=== PATIENT | female | born 1925 | race Caucasian/White ===

== ENCOUNTER 2017-08-09 09:38 | Inpatient (IN) | payer MEDICARE, OTHER ==
--- NOTE | 2017-08-09 09:58 | CT ---
HEAD CT NONCONTRAST: INDICATION: Acute onset altered mental status, right hemiparesis. FINDINGS: Multifocal deep white matter ischemic change present bilaterally. There is parenchymal atrophy with compensatory dilatation of the ventricular system. There are scattered extraaxial calcifications. N o acute intracranial hemorrhage or mass effect. IMPRESSION: 1. No acute intracranial hemorrhage or mass effect. 2. Findings consistent with multifocal white matter ischemic disease and parenchymal atrophy. Notification placed via telephone, 0945 hours, 08/09/17. POS: RHONDA
--- NOTE | 2017-08-09 10:18 | CT ---
CTA HEAD WITH 3D VOLUME RENDERING CTA NECK WITH 3D VOLUME RENDERING: Date: 08/09/17 CLINICAL HISTORY: Altered mental status, new onset, right side hemiparesis. FINDINGS: There is scattered atherosclerotic vascular disease involving the major arterial system of the head a nd neck without evidence of a focal thrombotic occlusion within the [place]. There Is promin ent scattered atherosclerotic vascular calcification of each carotid artery notably about the level o f the carotid bifurcation. There is medial deviation of each carotid artery. The imaged aortic arch r eveals scattered vascular disease, which also involves origins of the great vessels without high grad e stenosis. There is tortuosity of the course of the bilateral vertebral arteries with mild scattered calcification. IMPRESSION: Scattered atherosclerotic vascular disease without evidence of focal thrombotic occlusion. Telephone call findings placed to ER physician, Dakotah Joseph, at 1001 hours on 08/09/17. CODE CR. POS: RHONDA
[2017-08-09 10:42] LABS: INR-International Normal Ratio 1.1; PTT 27.2 SEC (22.9-36.1); Prothrombin Time 14.5 SEC (12.0-14.7)
[2017-08-09 10:54] LABS: Bilirubin Negative (Negative); Blood, Urine Negative (Negative); Glucose, Urine (Dipstick) Negative (Negative); Leukocyte Negative (Negative); Nitrite Negative (Negative); Protein, Urine (Dipstick) Negative (Neg-Trace); Urobilinogen 0.2 mg/dL (0.2-1.0)
[2017-08-09 10:55] LABS: ALT (SGPT) 21 U/L (8-55); AST (SGOT) 39 U/L (5-34); Albumin 3.6 g/dL (3.4-4.8); Alkaline Phosphatase 211 U/L (40-150); Anion Gap 15 mmol/L (10-20); BUN (Urea Nitrogen) 28 mg/dL (9.8-20.1); Bilirubin, Total 2.1 mg/dL (0.2-1.2); Calc. Creatinine Clearance 0 mL/min (70-130); Carbon Dioxide 27 mmol/L (23-31); Chloride 96 mmol/L (98-107); Estimated GFR-MDRD 50; Globulin 3.4 g/dL (2.4-3.5); Glucose 107 mg/dL (83-110); Sodium 134 mmol/L (136-145)
[2017-08-09 10:59] LABS: CKMB 2.3 ng/mL (0-6.6); Troponin I 0.028 ng/mL (< 0.028)
[2017-08-09 11:02] LABS: Clarity CLEAR (Clear)
[2017-08-09 11:04] LABS: Acanthocytes SLIGHT = 1-5 cells (100X) (None Seen); Anisocytosis MODERATE=16-30 cells (100X) (0-5/hpf); Band 1 % (5-11); Bite Cells SLIGHT = 2-5 cells (100X) (0-1/hpf); Hemoglobin 9.4 g/dL (12.0-16.0); Hypochromia SLIGHT = 6-15 cells (100X) (0-5/hpf); Lymphocytes 14 % (21-51); MDiff Complete? YES; Mean Corpuscular Hemoglobin 31.9 pg (27.0-31.0); Mean Corpuscular Volume 96.6 fl (81.0-99.0); Mean Platelet Volume 10.5 fL (7.4-10.4); Monocytes 21 % (0-10); Neutrophil 62 % (42-75); Nucleated RBC 7 % (0); PLT Morphology Comment Appears Adequate; Platelet Count 256 thou/uL (130-400); Polychromasia MODERATE = 3-4 cells (100X) (0-2/hpf); RBC Distribution Width 19.8 % (11.5-14.5); Reactive Lymphocytes 2 % (0-10); Red Blood Cell (RBC) Count 2.95 mill/uL (4.20-5.40); Schistocytes SLIGHT = 2-5 cells (100X) (0-1/hpf); White Blood Cell (WBC) Count 3.8 thou/uL (4.8-10.8)
[2017-08-09] MEDS ORDERED: Aspirin 300 MG Suppository ONE (12:39)
--- NOTE | 2017-08-09 14:09 | HP ---
PRIMARY CARE PROVIDER: Dr. Sukhi Whitehead in [place]. CHIEF COMPLAINT/REASON FOR ADMISSION: The patient referred to [facility] by [facility]. HISTORY OF PRESENT ILLNESS: The patient was alert, appropriate last night, spoke with the family. T his morning she was noted to not make sense talking, to be poorly responsive. She was seen, found to have non-appropriate verbalization, did not follow directions. She was noted to have some signs and symptoms of a stroke with a droop in her right face and poor use of her right side. CT scan of the brain was unrevealing. She is being admitted to the hospital with a diagnosis of encephalopathy seco ndary to acute embolic stroke probably from atrial fibrillation. She has had two mastectomies for cancer in 1978 and 1979. She has had an ovarian surgery in the . She has had in the last year a diagnosis of CHF. She had some GI bleeding which was determined to be from gastroesophageal reflux disease. CURRENT MEDICATIONS: Not available. The family is going to get them for me. ALLERGIES: She has no medical allergies. PAST SURGICAL HISTORY: In addition to that mentioned in the present illness, she had apparently 2 co mpression fractures 3 months ago which were treated with "glue". FAMILY HISTORY: Negative for strokes, coronary artery disease, diabetes. SOCIAL HISTORY: She is . Non-tobacco user. DNR status, has living will. Family confirmed. REVIEW OF SYSTEMS: Unobtainable due to the patient's current mental status. PHYSICAL EXAMINATION: VITAL SIGNS: Blood pressure was 142/83, pulse was 85 and irregular, respirations were 14-15, O2 sat was 98. HEENT: Reveal pupils equal and reactive. Eyes were conjugate. Extraocular movements could not be t ested because she did not follow directions. Sclerae white. Tympanic membranes clear. Nose clear. Oral mucous membranes are wet. NECK: No jugular venous distention, adenopathy or thyromegaly. LUNGS: Chest clear to auscultation and percussion. CARDIAC: Irregular rate and rhythm. First and second heart sounds were variable, 3/6 systolic murmu r. ABDOMEN: Soft, bowel sounds normal. No hepatosplenomegaly, no mass, no rebound. EXTREMITIES: Reveal no cyanosis, clubbing or edema. PULSES: Carotid, radial, femoral, and dorsalis pedis pulses were palpable and symmetric. SKIN: Warm and dry without bruises or rash. HEME/LYMPH: No tender or swollen lymph nodes in axilla, inguinal or cervical area were palpated. NEUROLOGIC: Right facial droop, decreased motion on right compared to left, upgoing toe on the right compared to the left. X-RAY FINDINGS: CT scan, no acute bleed, reviewed by me. CT angiography revealed no lesions [place] internal carotid arteries. EKG; atrial fibrillation with controlled ventricular response, nonspecific ST-T abnormality, reviewed by me. LABORATORY: Hemoglobin 9.4, white count 3.8, platelet count 256,000. INR 1.1. Comp metabolic profi le: Sodium 134, chloride 96, BUN 28, bilirubin 2.1, AST 39, alkaline phosphatase 211. Other numbers are normal. ADMITTING DIAGNOSES: 1. Encephalopathy. 2. Embolic cerebrovascular accident. 3. Atrial fibrillation. 4. Aortic stenosis versus sclerosis. 5. History of congestive heart failure. 6. Gastroesophageal reflux disease. PLAN: 1. N.p.o. 2. Urgent MRI of the brain without contrast. 3. Lovenox therapeutic. 4. Stroke protocol. 5. Echocardiogram. 6. IV fluids. 7. Reevaluate when results of studies are available for continuing decisions on care, consultations, etc.
[2017-08-09] MEDS ORDERED: [UNRECOGNIZED DRUG - OTHER] IV SCH (14:22)
[2017-08-09] MEDS ORDERED: Acetaminophen 650 MG Suppository PR PRN (14:22)
[2017-08-09] MEDS ORDERED: D5 IV SCH (14:22)
[2017-08-09] MEDS ORDERED: KCL IV SCH (14:22)
[2017-08-09] MEDS ORDERED: Ondansetron HCl/PF 4 MG/2 ML Vial IVP PRN (14:22)
[2017-08-09] MEDS: POTASSIUM CHLORIDE IV SCH (15:48)
[2017-08-09] MEDS: WATER IV SCH (15:48)
[2017-08-09] MEDS: DEXTROSE 5% IV SCH (15:48)
[2017-08-09] MEDS: SODIUM CHLORIDE IV SCH (15:48)
--- NOTE | 2017-08-09 15:54 | MRI ---
MRI BRAIN NONCONTRAST: HISTORY: CVA. Right facial droop. COMPARISON: CT head 08/09/17. FINDINGS: Centered at the peripheral norman matter of the left frontotemporal lobe, an area of restricted diffusi on is 3.9 x 3.1 cm diameters on the axial images and shows a corresponding defect on the ADC mapping images. Subtle signal abnormalities in the same distribution are present on the FLAIR and T2 weighte d images. There is no mass effect or shift of midline structures. Diffuse cortical atrophy and rating officer esvin ischemic small-vessel disease are again demonstrated. No mass effect or shift of midline structu res. IMPRESSION: Acute area of peripheral infarct involving the norman matter of the left frontotemporal lobe in the dis jackelyn distribution of an anterior left middle cerebral artery branch. No evidence of complication. POS: RHONDA
[2017-08-09] MEDS ORDERED: ISOVUE-370 76%-LOCM 1 ML ONE (16:16)
--- NOTE | 2017-08-09 16:22 | PDOC.EVN ---
Event Note - Event Note Event Note: MRI brain- L MCA infarct, acute
[2017-08-09] MEDS: Enoxaparin Sodium 60 MG/0.6 ML SYRINGE SC SCH (21:20)
--- NOTE | 2017-08-10 01:03 | CON ---
DATE OF CONSULTATION: 08/09/2017 REFERRING PROVIDER: Dr. Alix Clark. REASON FOR CONSULTATION: Aphasia. HISTORY OF PRESENT ILLNESS: Ms. Armenta is a pleasant 89-year-old female who has been concern ed for evaluation of aphasia. History is obtained from patient's family, the patient's daughter who was present at the bedside. Daughter reports that she had gone to bed last night well without any co mplaints. This morning when she woke up, she was having difficulty with talking and verbalizing. Sh dominga was not able to follow any commands. This concerned them and thus she was brought to the [facility] Emergency Room. She had a CT scan of the head done, which showed no acute intracranial abnormality . For further evaluation, she is being admitted. PAST MEDICAL HISTORY: Significant for hypertension, congestive heart failure, GI bleeding, GERD. PAST SURGICAL HISTORY: Not significant. SOCIAL HISTORY: She is a . She does not smoke cigarettes, drink alcohol, or use illicit drugs. FAMILY HISTORY: Noncontributory. CURRENT MEDICATIONS: Please review MAR. ALLERGIES: No known drug allergies. REVIEW OF SYSTEMS: Unable to perform. PHYSICAL EXAMINATION: VITAL SIGNS: Blood pressure of 115/57, pulse of 82, temperature of 98, respirations 16, O2 sats 95% on room air. GENERAL: A well-developed, well-nourished female, in no apparent distress. RESPIRATORY: Clear to auscultation bilaterally. CARDIOVASCULAR: Regular rate and rhythm. NEUROLOGIC: Mental status: The patient is awake and alert, but nonverbal. She is not able to follo w any commands. Speech and language: She is mute and nonverbal. Cranial nerves: Pupils are 3 mm a nd reactive. Visual mejia are intact to threat. External muscles are intact. No nystagmus is note d. Face: There is a right facial droop noted. Tongue and uvula midline. Motor exam showed normal tone and bulk with 5/5 strength in both upper and lower extremities. There may be a slight pronator drift in the right upper extremity and right lower extremity. Sensory: Sensation is diminished on t he right upper and right lower extremity. Deep tendon reflexes, brisk reflexes in right upper and ri ght lower extremity. Babinski: Plantar responses extensor on the right side and flexion on the left . Gait and Romberg coordination could not be tested. LABORATORY DATA: Reviewed, which included CBC, coag panel, CMP, urinalysis, which is significant for WBC of 3.8, hemoglobin of 9.4, hematocrit of 28.5, platelet count of 256,000. Sodium 134, BUN of 28 . AST of 39 and alkaline phosphatase of 211, otherwise unremarkable. IMAGING STUDIES: MRI brain without contrast was reviewed, which showed moderate size left MCA distri bution ischemic infarct. CT angiogram of the head and neck were reviewed, which showed no hemodynami lamar significant stenosis. IMPRESSION: 1. Left middle cerebral artery distribution ischemic infarct. 2. Aphasia, due to #1. 3. New-onset atrial fibrillation. PLAN: Ms. Armenta is a pleasant 89-year-old female who presented with an acute onset of expre ssive and receptive aphasia. She is also found to have new-onset atrial fibrillation. Her MRI brain does show acute left MCA distribution ischemic infarct. This is likely cardioembolic in origin. At this time, I will recommend consulting PT, OT, speech therapy. I will recommend starting her on ant icoagulation therapy for underlying new onset atrial fibrillation for secondary stroke prevention. C ontinue supportive care.
[2017-08-10] MEDS: SODIUM CHLORIDE IV SCH ×2 (02:36→13:46)
[2017-08-10] MEDS: DEXTROSE 5% IV SCH ×2 (02:36→13:46)
[2017-08-10] MEDS: WATER IV SCH ×2 (02:36→13:46)
[2017-08-10] MEDS: POTASSIUM CHLORIDE IV SCH ×2 (02:36→13:46)
[2017-08-10 05:33] LABS: Anion Gap 12 mmol/L (10-20); BUN (Urea Nitrogen) 22 mg/dL (9.8-20.1); Calc. Creatinine Clearance 37 mL/min (70-130); Calcium 8.8 mg/dL (7.8-10.44); Carbon Dioxide 27 mmol/L (23-31); Cardiac Risk 2.8 (Less than 4.5); Chloride 100 mmol/L (98-107); Cholesterol 134 mg/dl (< 200 Desired); Estimated GFR-MDRD 56; Glucose 108 mg/dL (83-110); HDL Cholesterol 48 mg/dL (>60 Neg Risk); LDL Cholesterol, Calculated 74 mg/dL; Potassium 3.9 mmol/L (3.5-5.1); Sodium 135 mmol/L (136-145); Triglycerides 59 mg/dL (Less than 150)
[2017-08-10 06:02] LABS: Acanthocytes MODERATE= 6-15 cells (100X) (None Seen); Anisocytosis MODERATE=16-30 cells (100X) (0-5/hpf); Elliptocytes SLIGHT = 2-5 cells (100X) (0-1/hpf); Hemoglobin 8.7 g/dL (12.0-16.0); Lymphocytes 17 % (21-51); MDiff Complete? YES; Macrocytosis SLIGHT = 6-15 cells (100X) (0-5/hpf); Mean Corpuscular HGB CONC 32.9 g/dL (32.0-36.0); Mean Corpuscular Volume 97.4 fl (81.0-99.0); Mean Platelet Volume 10.5 fL (7.4-10.4); Monocytes 27 % (0-10); Neutrophil 56 % (42-75); Nucleated RBC 17 % (0); Platelet Count 243 thou/uL (130-400); RBC Distribution Width 19.3 % (11.5-14.5); Red Blood Cell (RBC) Count 2.73 mill/uL (4.20-5.40); Schistocytes SLIGHT = 2-5 cells (100X) (0-1/hpf); Tear Drops SLIGHT = 2-5 cells (100X) (0-1/hpf); White Blood Cell (WBC) Count 2.4 thou/uL (4.8-10.8)
--- NOTE | 2017-08-10 07:22 | PDOC.PN ---
- Subjective Encounter Start Date: 08/10/17 Encounter Start Time: 07:20 Subjective: more alert, follows simple commands slowly, nonverbal - Objective Resuscitation Status: Resuscitation Status DNR:Do Not Resuscitate MAR Reviewed: Yes Vital Signs & Weight: Vital Signs (12 hours) Temp Pulse Resp BP Pulse Ox 08/10/17 04:23 98.2 F 71 16 117/58 L 99 08/10/17 04:21 99 08/10/17 00:00 98.0 F 73 18 104/49 L 93 L 08/09/17 21:04 98.0 F 78 18 109/53 L 96 08/09/17 20:59 98.0 F 78 18 96 Weight Weight 133 lb 1.6 oz Result Diagrams: 08/10/17 04:31 08/10/17 04:31 Phys Exam - Physical Examination Neck: no JVD Respiratory: clear to auscultation bilateral Cardiovascular: irregular 3/6 sys murmur Gastrointestinal: soft, positive bowel sounds Musculoskeletal: no edema R central 7th palsy, spastic memiplegia on R Dx/Plan (1) Cerebrovascular accident, embolic Code(s): I63.9 - CEREBRAL INFARCTION, UNSPECIFIED Status: Acute Qualifiers: Precerebral and cerebral artery: middle cerebral artery Laterality of affected vessel: left Qualified Code(s): I63.412 - Cerebral infarction due to embolism of left middle cerebral artery (2) Aphasia complicating stroke Code(s): GJI5717 - Status: Acute (3) Hemiplegia affecting right dominant side Code(s): G81.91 - HEMIPLEGIA, UNSPECIFIED AFFECTING RIGHT DOMINANT SIDE Status : Acute Qualifiers: Hemiplegia type: spastic Cerebrovascular disease type: cerebral infarction (4) Atrial fibrillation with normal ventricular rate Code(s): I48.91 - UNSPECIFIED ATRIAL FIBRILLATION Status: Acute (5) CHF (congestive heart failure) Code(s): I50.9 - HEART FAILURE, UNSPECIFIED Status: Acute Qualifiers: Heart failure type: unspecified Heart failure chronicity: unspecified Qualified Code(s): I50.9 - Heart failure, unspecified - Plan cont PT/OT/ST -: cont Tx lovenox -: NPO pending speech eval -: echo pending * .
[2017-08-10] MEDS: Enoxaparin Sodium 60 MG/0.6 ML SYRINGE SC SCH ×2 (08:43→20:53)
[2017-08-10] MEDS ORDERED: Aspirin 300 MG Suppository PR SCH (09:00)
[2017-08-11] MEDS: SODIUM CHLORIDE IV SCH ×2 (00:09→10:12)
[2017-08-11] MEDS: WATER IV SCH ×2 (00:09→10:12)
[2017-08-11] MEDS: DEXTROSE 5% IV SCH ×2 (00:09→10:12)
[2017-08-11] MEDS: POTASSIUM CHLORIDE IV SCH ×2 (00:09→10:12)
[2017-08-11] MEDS: Enoxaparin Sodium 60 MG/0.6 ML SYRINGE SC SCH ×2 (08:21→22:03)
[2017-08-11] MEDS: Aspirin 325 MG TAB PO SCH (08:21)
--- NOTE | 2017-08-11 08:55 | PDOC.PN ---
- Subjective Encounter Start Date: 08/11/17 Encounter Start Time: 08:54 Subjective: toleratinvg diet, expressive aphasia - Objective Resuscitation Status: Resuscitation Status DNR:Do Not Resuscitate MAR Reviewed: Yes Vital Signs & Weight: Vital Signs (12 hours) Temp Pulse Resp BP Pulse Ox 08/11/17 07:28 98.8 F 63 24 H 113/54 L 97 08/11/17 03:09 97.5 F L 63 18 104/54 L 96 08/10/17 23:26 97.4 F L 63 20 99/49 L 99 Weight Admit Weight 125 lb 11.2 oz Weight 132 lb I&O: 08/10/17 08/11/17 08/12/17 06:59 06:59 06:59 Intake Total 1102 Balance 1102 Result Diagrams: 08/10/17 04:31 08/10/17 04:31 Phys Exam - Physical Examination Neck: no JVD Respiratory: clear to auscultation bilateral Cardiovascular: no significant murmur, irregular Gastrointestinal: soft, positive bowel sounds Musculoskeletal: no edema R spastic hemiplgia Dx/Plan (1) Cerebrovascular accident, embolic Code(s): I63.9 - CEREBRAL INFARCTION, UNSPECIFIED Status: Acute Qualifiers: Precerebral and cerebral artery: middle cerebral artery Laterality of affected vessel: left Qualified Code(s): I63.412 - Cerebral infarction due to embolism of left middle cerebral artery (2) Aphasia complicating stroke Code(s): [id number] - Status: Acute (3) Hemiplegia affecting right dominant side Code(s): G81.91 - HEMIPLEGIA, UNSPECIFIED AFFECTING RIGHT DOMINANT SIDE Status : Acute Qualifiers: Hemiplegia type: spastic Cerebrovascular disease type: cerebral infarction (4) Atrial fibrillation with normal ventricular rate Code(s): I48.91 - UNSPECIFIED ATRIAL FIBRILLATION Status: Acute (5) CHF (congestive heart failure) Code(s): I50.9 - HEART FAILURE, UNSPECIFIED Status: Acute Qualifiers: Heart failure type: unspecified Heart failure chronicity: unspecified Qualified Code(s): I50.9 - Heart failure, unspecified - Plan plan discussed w/ family, PT/OT cont current tx, cardiology consult -: switch lovenox to eliquis when ok with cardiology * .
[2017-08-11 09:49] LABS: Iron 95 ug/dL (50-170); Iron Binding Capacity, Total 381 mcg/dL (265-497)
--- NOTE | 2017-08-11 16:04 | CON ---
DATE OF CONSULTATION: 08/11/2017 HISTORY OF PRESENT ILLNESS: The patient is an 89-year-old woman who presents for evaluation of a cerebrovascular accident and has an irregular heart rhythm. The patient has no previous cardiac history. The patient presented with acute onset of aphasia and weakness. The patient has been started on anticoagulation therapy. PAST MEDICAL HISTORY: 1. History of gastrointestinal bleed. 2. Possible congestive heart failure. PAST SURGICAL HISTORY: Surgery for compression fracture. SOCIAL HISTORY: Nonsmoker. FAMILY HISTORY: No strong family history of heart disease. MEDICATIONS ON ADMISSION: Potassium 10 daily, GlycoLax 17 grams daily, Gaviscon 1 tablet daily, vitamin D 1000 units daily, spironolactone 25 daily, doxepin 10 daily, gabapentin 300 b.i.d., Bumex 2 mg p.o. b.i.d. REVIEW OF SYSTEMS: Recent history of bright red blood per rectum and hematuria. Ten-point is unremarkable. PHYSICAL EXAMINATION: GENERAL: Aphasic woman with a blood pressure 113/54. NECK: Showed no jugular venous distention. LUNGS: Clear to auscultation. HEART: Irregular rate and rhythm. Normal S1, S2, no murmurs. ABDOMEN: Nondistended. EXTREMITIES: Showed trace edema. SKIN: Warm and dry. VASCULAR: Radial pulses are 2+. LABORATORY DATA: White blood cell count 2.4, hemoglobin 8.7, hematocrit 26.6 and her platelets were 243. Her INR was 1.1. Sodium 135, potassium 3.9, chloride 100, bicarbonate 27, BUN 22, creatinine is 0.94. EKG revealed atrial fibrillation with a right bundle-branch block and left anterior fascicular block. Her echocardiogram was technically suboptimal study, suboptimal exam with mild decreased left ventricular ejection fraction 40%-45%. IMPRESSION: 1. Status post cerebrovascular accident. 2. Paroxysmal atrial fibrillation. 3. History of gastrointestinal bleed. 4. Mild cardiomyopathy. This is an unfortunate woman has suffered a CVA and is aphasic. From a cardiac standpoint, she needs to be on lifetime anticoagulation.With her history of GI bleeding. we would avoid concomitant aspirin. I would treat with low dose Eliquis or Xarelto when the patient can swallow her pills appropriately. We will follow this patient with you through her hospitalization. CURTIS
[2017-08-11] MEDS: Atorvastatin Calcium 10 MG TAB PO SCH (22:03)
[2017-08-12 07:49] LABS: Hemoglobin 8.8 g/dL (12.0-16.0); Mean Corpuscular HGB CONC 32.6 g/dL (32.0-36.0); Mean Corpuscular Hemoglobin 32.3 pg (27.0-31.0); Mean Platelet Volume 10.7 fL (7.4-10.4); Platelet Count 234 thou/uL (130-400); RBC Distribution Width 19.7 % (11.5-14.5); Red Blood Cell (RBC) Count 2.74 mill/uL (4.20-5.40); White Blood Cell (WBC) Count 2.5 thou/uL (4.8-10.8)
[2017-08-12 07:50] LABS: ALT (SGPT) 17 U/L (8-55); AST (SGOT) 33 U/L (5-34); Albumin 2.9 g/dL (3.4-4.8); Alkaline Phosphatase 157 U/L (40-150); Anion Gap 12 mmol/L (10-20); BUN (Urea Nitrogen) 17 mg/dL (9.8-20.1); Calc. Creatinine Clearance 51 mL/min (70-130); Calcium 8.3 mg/dL (7.8-10.44); Carbon Dioxide 22 mmol/L (23-31); Chloride 104 mmol/L (98-107); Estimated GFR-MDRD 79; Globulin 2.9 g/dL (2.4-3.5); Glucose 87 mg/dL (83-110); Potassium 4.1 mmol/L (3.5-5.1); Protein, Total 5.8 g/dL (6.0-8.3); Sodium 134 mmol/L (136-145)
[2017-08-12 08:13] LABS: Acanthocytes SLIGHT = 1-5 cells (100X) (None Seen); Band 2 % (5-11); Burr Cells SLIGHT = 2-5 cells (100X) (0-1/hpf); Lymphocytes 26 % (21-51); MDiff Complete? YES; Monocytes 22 % (0-10); Neutrophil 50 % (42-75); PLT Morphology Comment Appears Adequate; Polychromasia SLIGHT = 2-3 cells (100X) (0-2/hpf); Schistocytes MODERATE= 6-15 cells (100X) (0-1/hpf)
[2017-08-12] MEDS: Enoxaparin Sodium 60 MG/0.6 ML SYRINGE SC SCH (09:27)
[2017-08-12] MEDS: Aspirin 325 MG TAB PO SCH (09:27)
[2017-08-12] MEDS ORDERED: Docusate Sodium 100 MG/10 ML UDCUP PO PRN (11:33)
[2017-08-12] MEDS ORDERED: Ondansetron ODT 4 MG TAB SL PRN (11:40)
--- NOTE | 2017-08-12 12:04 | PDOC.PN ---
- Subjective Encounter Start Date: 08/12/17 (f/u stroke) Encounter Start Time: 12:03 Subjective: History from daughter - noting improvement, able to say a few words -: and be up with assistance to the bathroom. No overnight events. -: Noting strong urine odor - Objective Resuscitation Status: Resuscitation Status DNR:Do Not Resuscitate Vital Signs & Weight: Vital Signs (12 hours) Temp Pulse Resp BP Pulse Ox 08/12/17 11:48 98.0 F 77 14 107/53 L 98 08/12/17 08:00 97.9 F 75 14 133/58 L 97 08/12/17 07:55 97.5 F L 68 18 08/12/17 03:10 97.5 F L 68 18 113/56 L 98 Weight Admit Weight 125 lb 11.2 oz Weight 131 lb 6.4 oz I&O: 08/11/17 08/12/17 08/13/17 06:59 06:59 06:59 Intake Total 1102 1287 Balance 1102 1287 Result Diagrams: 08/12/17 07:07 08/12/17 07:07 EKG Reviewed by me: Yes (tele - a fib 60-70's) Phys Exam - Physical Examination Constitutional: NAD pupils equal and round Respiratory: no wheezing, no rales, no rhonchi, clear to auscultation bilateral Cardiovascular: no significant murmur, irregular Gastrointestinal: soft, non-tender, no distention, positive bowel sounds Musculoskeletal: no edema, pulses present follows commands. Decreased strength in right hand/arm and left Deviation from normal: small erythematous patches that hardy on right foot - present on admit Dx/Plan (1) Aphasia complicating stroke Code(s): [id number] - Status: Acute (2) Atrial fibrillation with normal ventricular rate Code(s): I48.91 - UNSPECIFIED ATRIAL FIBRILLATION Status: Chronic (3) Cerebrovascular accident, embolic Code(s): I63.9 - CEREBRAL INFARCTION, UNSPECIFIED Status: Acute Qualifiers: Precerebral and cerebral artery: middle cerebral artery Laterality of affected vessel: left Qualified Code(s): I63.412 - Cerebral infarction due to embolism of left middle cerebral artery (4) Anemia Code(s): D64.9 - ANEMIA, UNSPECIFIED Status: Acute (5) Leukopenia Code(s): D72.819 - DECREASED WHITE BLOOD CELL COUNT, UNSPECIFIED Status: Acute Qualifiers: Leukopenia type: unspecified Qualified Code(s): D72.819 - Decreased white blood cell count, unspecified - Plan * Pt with recovery since admission - discussed with daughter the desire for inpatient rehab - await their decision * * Appreciate Cards recommendation - will d/c lovenox and start eliquis that is dosed at 2.5 mg based on weight and age. Discussed risk of bleeding - pt with GI bleeding in July that resulted in 2 units transfusion and 2 weeks in hospital - attributed to diverticular source. Reviewed risks/benefits of not anti- coagulating with daughter - recurrent stroke. Will type and screen - daughter reports OK to transfuse if there is a bleed. * * change in urine - check UA * * anemia - stable * leukopenia - stable - uncertain etiology as no prior labs - monitor. Is not on meds that I would anticipate cause this. * * Add colace for bm's - was on miralax at home * * dvt prophy - fully anticoagulated for a fib and tolerating * gi prophty - not indicated * * code status DNR - confirmed with daughter. * * reviewed plan of care, no questions or further needs at end of eval.
[2017-08-12 16:18] LABS: Bilirubin Small (Negative); Blood, Urine Negative (Negative); Clarity CLOUDY (Clear); Glucose, Urine (Dipstick) Negative (Negative); Leukocyte Moderate (Negative); Nitrite Positive (Negative); Protein, Urine (Dipstick) Trace mg/dL (Neg-Trace); Specific Gravity, Urine 1.019 (1.002-1.036)
[2017-08-12 16:21] LABS: Bacteria/HPF 2+ HPF (None Seen); Hyaline Casts/LPF 7-10 HYALINE CAST LPF (0-3 Hyaline); Pathc Cast-AUWi Flag 0.58 (0-2.49); RBC/HPF 0-3 HPF (0-3)
[2017-08-12 16:32] LABS: Crystals/HPF None Seen HPF (Negative); Oval Fat Bodies/HPF None Seen HPF (None Seen); Renal Epithelial None Seen HPF (0-3); Transitional Epithelial NONE SEEN HPF (0-3)
--- NOTE | 2017-08-12 16:48 | PDOC.EVN ---
Event Note - Event Note Event Note: called by RN for abnormal UA - clean catch. Given that pt is at risk of UTI with ohspitalization and stroke, the change in urine odor, a low white blood cell count and now abnormal UA - recommend that we start Rocephin. Reviewed this with daughter - the indication for this - and pt does not have an IV currently - will order an IM dose. Urine culture ordered - anticipate this can be monitored, meds adjusted at inpatient rehab. Discussed with Storeroom Keeper Maxine and anticipate transfer tomorrow. No questions after talking with Isabel/daughter by phone.
[2017-08-12] MEDS ORDERED: Lidocaine 1% PF 10 ML AMP FS SCH (17:00)
[2017-08-12] MEDS ORDERED: cefTRIAXone\\ROCEPHIN 1 GM VIAL IM SCH (17:00)
[2017-08-12] MEDS: Atorvastatin Calcium 10 MG TAB PO SCH (20:43)
[2017-08-12] MEDS: Docusate 100 MG CAP PO SCH (20:43)
[2017-08-12] MEDS: Apixaban 2.5 MG TAB PO SCH (20:44)
[2017-08-12] MEDS ORDERED: Docusate Sodium 100 MG/10 ML UDCUP PO SCH (21:00)
[2017-08-13 05:25] VITALS: BMI 22.7
[2017-08-13 06:49] LABS: Band 3 % (5-11); Eosinophils 2 % (0-10); Hemoglobin 9.1 g/dL (12.0-16.0); Lymphocytes 23 % (21-51); MDiff Complete? YES; Mean Corpuscular HGB CONC 32.3 g/dL (32.0-36.0); Mean Corpuscular Hemoglobin 31.6 pg (27.0-31.0); Mean Platelet Volume 10.2 fL (7.4-10.4); Monocytes 15 % (0-10); Neutrophil 57 % (42-75); Nucleated RBC 3 % (0); Platelet Count 272 thou/uL (130-400); RBC Distribution Width 19.6 % (11.5-14.5); Red Blood Cell (RBC) Count 2.86 mill/uL (4.20-5.40); White Blood Cell (WBC) Count 2.4 thou/uL (4.8-10.8)
[2017-08-13] MEDS: Apixaban 2.5 MG TAB PO SCH (09:11)
[2017-08-13] MEDS: Docusate 100 MG CAP PO SCH (09:11)
[2017-08-13 12:12] VITALS: BP 127/60; TEMP 97.5
--- NOTE | 2017-08-13 23:31 | DIS ---
DATE OF ADMISSION: 08/09/2017 DATE OF DISCHARGE: 08/13/2017 DISCHARGE DIAGNOSES: Aphasia, complicating stroke, atrial fibrillation with normal ventricular rate, embolic cerebrovascular accident, anemia, and leukopenia. HISTORY OF PRESENT ILLNESS/HOSPITAL COURSE: Ms. Jossie Armenta is an 89-year-old female, [facility] due to complaints of nonsens ical speech. According to family, the patient was alert, appropriate on presentation and then the ne xt morning, she was noted not to be making sense talking and poorly responsive. She was seen and fou nd to have inappropriate verbalization, did not follow directions. She was noted to have some signs and symptoms of stroke was a droop on the right face and use of right side. CT of the brain was nonr evealing. She was then admitted to the hospital with a diagnosis of encephalopathy secondary to acut e embolic stroke probably from atrial fibrillation as the patient has a history of this. An MRI of t he brain without contrast was ordered urgently and this revealed acute area of peripheral infarct inv olving the norman mass of the left frontotemporal lobe and a distal distribution of an anterior left mi ddle cerebral artery branch. There was no evidence of complications. She still had a CT angio of th e brain and it shows scattered atherosclerotic vascular disease without evidence of focal thrombolyti c occlusion. An echocardiogram done revealed an ejection fraction of 40% to 50% with moderate to sev ere tricuspid regurgitation, mild aortic regurgitation, mild mitral regurgitation, and right ventricu lar systolic pressure elevation. The patient received PT, OT, and APPRENTICE therapy while in hospital and had some recovery. She is able to follow commands. Cardiology was also consulted on Lovenox was dis continued and the patient was started on Eliquis. Risk of bleeding were discussed with the patient b ecause the patient had a history of GI bleeding and may resulted in 2 units of transfusion on 2 weeks of hospital stay, this was attributed to a diverticular source of recent bleeding. Risks and benefi ts of anticoagulation was discussed with the patient, and they agreed to continue the patient on anti coagulation. DISCHARGE MEDICATIONS: Apixaban 2.5 mg twice daily, atorvastatin 10 mg at bedtime, docusate 100 mg t wice a day, ondansetron 4 mg every 8 hours as needed, spironolactone 25 mg daily, gabapentin 300 mg t wice a day, doxepin 10 mg at bedtime, calcitonin 1 spray nasally daily, Bumex 2 mg twice a day, potas sium chloride 10 mEq oral daily, polyethylene glycol 17 grams daily, magnesium carbonate 1 tablet jenifer ly, lidocaine 2% viscous solution 5 mg orally every 4 hours as needed for pain, and cholecalciferol 1 000 units daily. PHYSICAL EXAMINATION: She was seen and examined on the day of discharge. VITAL SIGNS: Temperature 97.6, pulse rate 77, respiration rate 16, oxygen saturation 96% on room air , and blood pressure 131/63. GENERAL: Not in acute distress. She is lying comfortably in bed. HEENT: Normocephalic, atraumatic. Not pale, anicteric. Moist mucous membranes. NECK: Supple, full range of movement. CARDIOVASCULAR: S1 and S2, irregular rhythm, but regular rate. No murmurs, rubs or gallops. RESPIRATORY: Vesicular breath sounds bilaterally. No wheezes or rales. ABDOMEN: Soft, nontender, nondistended. No organomegaly. Bowel sounds normoactive. NEUROLOGIC: Aphasic strength 3/4. MUSCULOSKELETAL: No edema. SKIN: Warm, dry, well-perfused. No rashes or lesions. LABORATORY DATA: WBC 2.4, hemoglobin 9.1, platelet count 272. Sodium 134, potassium 4.1, chloride 1 04, carbon dioxide 22, anion gap 12, BUN 17, and creatinine 0.7. IMAGING: Brain MRI, CT brain without contrast, CT angiography, CT [place] angio with contra st, echocardiogram. CONSULTS: Cardiology and Neurology. CONDITION ON DISCHARGE: Stable and improved. PROCEDURES: None. DIET: Heart healthy. CARE GOALS: To follow up with primary care physician within 1 week of discharge for repeat labs and medication reconciliation. ACTIVITY: Resume as tolerated as directed by physical and occupational therapy. DISCHARGE TIME: 65 minutes including chart review and documentation.
== END 2017-08-13 14:59 | DRG 64 ==
LOC: ERS 09:38 → 2SE 12:17
PROVIDERS: ADMIT Internal Medicine; ATTEND Internal Medicine
DX: I63.412 Cerebral infarction due to embolism of left middle cerebral artery (principal); G93.49 Other encephalopathy; G81.91 Hemiplegia, unspecified affecting right dominant side; I42.9 Cardiomyopathy, unspecified; R29.810 Facial weakness; H53.47 Heteronymous bilateral field defects; R47.01 Aphasia; R29.708 NIHSS score 8; I50.9 Heart failure, unspecified; Z66 Do not resuscitate; I11.0 Hypertensive heart disease with heart failure; I48.0 Paroxysmal atrial fibrillation; K57.30 Diverticulosis of large intestine without perforation or abscess without bleeding; D72.819 Decreased white blood cell count, unspecified; I07.1 Rheumatic tricuspid insufficiency; D64.9 Anemia, unspecified; K21.9 Gastro-esophageal reflux disease without esophagitis; R82.90 Unspecified abnormal findings in urine; Z85.3 Personal history of malignant neoplasm of breast; Z90.13 Acquired absence of bilateral breasts and nipples; Z87.19 Personal history of other diseases of the digestive system
CPT/HCPCS: 36415; 36416; 51701; 70450; 70496; 70498; 70551; 80048; 80053; 80061; 81003; 81015; 82553; 82607; 83540; 83550; 84484; 85025; 85610; 85730; 86850; 86900; 86901; 87077; 87086; 87186; 93005; 93306; A4353; G8978-GP-CL; G8979-GP-CK; G8987-GO-CM; G8988-GO-CJ; G8996-GN-CK; G8997-GN-CJ; J0696; J1650; J3480; J7070